=== PATIENT | male | born 1970 | race Caucasian/White ===

== ENCOUNTER 2019-12-30 16:06 | Inpatient (IN) | payer SELFPAY ==
[2019-12-30 16:18] VITALS: RESP 24; BMI 26.6
--- NOTE | 2019-12-30 16:24 | W.ED.PSYCH ---
HPI - Psych General: Chief Complaint: Psychiatric Symptoms Stated Complaint: mhe Time Seen by Provider: 12/30/19 16:18 Source: patient Mode of arrival: ambulatory Limitations: no limitations History of Present Illness: HPI Narrative: 49-year-old male with a history of methamphetamine abuse states he used IV meth yesterday and states he is feeling extremely anxious. He states he feels like he is going to harm himself or harm someone else. Patient is very anxious here and has flight of ideas. He denies any suicidality at this time. Review of Systems Const: Denies: fever(s), chills, body aches or change in appetite Eyes: Denies: blurry vision or eye discomfort ENMT: Denies: throat pain or dental pain Card: Denies: chest pain Resp: Denies: dyspnea GI: Denies: abdominal pain, nausea, vomiting or diarrhea : Denies: dysuria Musc: Denies: neck pain or back pain Skin/Breast: Denies: rash Neuro: Denies: headache(s) Psych: Reports: anxiety, mood swings and difficulty concentrating Brien/Lymph: Denies: easy bruising All/Imm: Denies: urticaria PFSH ED PFSH: Social History Smoking and tobacco status: current every day smoker Physical Exam Const: COMMON NORMALS: no acute distress, patient oriented x3 and healthy appearing GENERAL APPEARANCE: anxious and disheveled HENMT: COMMON NORMALS: normocephalic and atraumatic HEAD & SCALP: normocephalic and atraumatic Eye: COMMON NORMALS: Equal, round and reactive pupils present and EOMs intact bilaterally PUPIL: Yes Equal, round and reactive pupils present Neck/C-Spine: COMMON NORMALS: full ROM and supple Chest: COMMONS NORMALS: normal inspection of the chest and normal palpation of entire chest wall Resp: COMMON NORMALS: normal respiratory effort, No retractions, No use of accessory muscles and clear to auscultation bilaterally AUSCULTATION: clear to auscultation bilaterally Cardio: COMMON NORMALS: regular rate, regular rhythm and No murmurs present (Cardio) RATE: regular rate RHYTHM: regular rhythm GI: COMMON NORMALS: Normal to inspection, nondistended, normoactive bowel sounds present, Soft to palpation, non-tender and no masses PALPATION: Yes Soft to palpation Extremity: COMMON NORMALS: normal to inspection and full ROM Neuro: COMMON NORMALS: patient oriented x3, moves all extremities and no focal motor deficits Psych: COMMON NORMALS: mental status grossly normal, Normal thought process present and cooperative THOUGHT PROCESS: Normal thought process present Skin: COMMON NORMALS: no rashes or lesions noted and no wounds GENERAL SKIN EXAM: no rashes or lesions noted MDM - Psych MDM Narrative: Medical decision making narrative: Aniket presents here with acute psychosis along with drug abuse. Patient is voluntarily going to be admitted for psychosis. Patient is much improved after Ativan. I spoke to Dr. Hidalgo and will admit. Lab Data: Labs: Lab Results 12/30/19 12/30/19 12/30/19 Range/Units 16:30 16:30 17:18 WBC 13.7 H (4.0-10.0) 10^3/ uL RBC 4.51 (4.1-5.3) 10^6/u L Hgb 13.6 (11.7-16.6) g/dL Hct 40.9 L (42.0-52.0) % MCV 90.7 (80-94) fL MCH 30.2 (28.0-34.0) pg MCHC 33.3 (30.0-36.0) g/dL RDW 12.1 (12.1-15.1) % Plt Count 403 H (130-400) 10^3/c mm MPV 10.4 (7.4-10.4) fL Neut % (Auto) 73.6 % Lymph % (Auto) 13.4 % Prentiss % (Auto) 12.5 % Eos % (Auto) 0.1 % Baso % (Auto) 0.2 % Neut # (Auto) 10.1 H (1.8-7.7) 10^3/u L Lymph # (Auto) 1.8 (0.8-4.8) 10^3/u L Prentiss # (Auto) 1.7 H (0.2-0.9) 10^3/u L Eos # (Auto) 0.0 (0.0-0.8) 10^3/u L Baso # (Auto) 0.0 (0.0-0.1) 10^3/u L Nucleated RBC % (a uto) 0 % Nucleated RBCs # 0.0 /100WBC Sodium 131 L (136-145) mmol/L Potassium 4.3 (3.5-5.1) mmol/L Chloride 93 L (98-107) mmol/L Carbon Dioxide 24 (22-29) mmol/L Anion Gap 18.3 (5-19) BUN 21 H (6-20) mg/dL Creatinine 1.4 H (0.7-1.2) mg/dL GFR Calculation 54.1 L (90-130) mL/min Glucose 123 H (65-115) mg/dL Calculated Osmolal ity 270 L (285-295) mOsm/k g Calcium 10.9 H (8.5-10.5) mg/dL Total Bilirubin 1.0 (0.15-1.2) mg/dL AST 104 H (0-40) U/L ALT 62 H (0-41) U/L Alkaline Phosphata se 75 (40-130) IU/L Total Protein 7.6 (6.6-8.7) g/dL Albumin 4.5 (3.5-5.2) g/dL Globulin 3.1 (1.3-4.6) g/dL Salicylates < 0.3 L (3-10) mg/dL Urine Opiates Scre en Negative (Negative) ng/mL Acetaminophen < 5.0 L (10-30) ug/mL Ur Barbiturates Sc reen Negative (Negative) ng/mL Ur Phencyclidine S crn Negative (Negative) ng/mL Ur Amphetamines Sc reen Positive H (Negative) ng/mL U Benzodiazepines Scrn Negative (Negative) ng/mL Urine Cocaine Scre en Negative (Negative) ng/mL U Marijuana (THC) Screen Positive H (Negative) ng/mL Ethyl Alcohol < 10 (0-10) mg/dL Discharge Plan Discharge Admit Provider: Oliver Hidalgo Coding Level of Care Code ED Global Marketing Operations Manager for Reyesg Fwd Exam Comprehensive
[2019-12-30] MEDS: LORazepam 2 mg/mL INJ 1 mL 4 MG IM (16:53)
[2019-12-30 16:58] LABS: Basophils % 0.2 %; Eosinophils % 0.1 %; Hematocrit 40.9 % (42.0-52.0); Hemoglobin 13.6 g/dL (11.7-16.6); Lymphocytes # 1.8 10^3/uL (0.8-4.8); Lymphocytes % 13.4 %; Mean Corpuscular HGB Conc 33.3 g/dL (30.0-36.0); Mean Corpuscular Hemoglobin 30.2 pg (28.0-34.0); Mean Corpuscular Volume 90.7 fL (80-94); Mean Platelet Volume 10.4 fL (7.4-10.4); Monocytes # 1.7 10^3/uL (0.2-0.9); Monocytes % 12.5 %; Neutrophils # 10.1 10^3/uL (1.8-7.7); Neutrophils % 73.6 %; Nucleated Red Blood Cells % 0 %; Platelet Count 403 10^3/cmm (130-400); Red Blood Count 4.51 10^6/uL (4.1-5.3); Red Cell Distribution Width 12.1 % (12.1-15.1); White Blood Count 13.7 10^3/uL (4.0-10.0)
[2019-12-30 17:25] LABS: Alanine Aminotransferase 62 U/L (0-41); Albumin Level 4.5 g/dL (3.5-5.2); Alkaline Phosphatase 75 IU/L (40-130); Anion Gap 18.3 (5-19); Aspartate Amino Transferase 104 U/L (0-40); Blood Urea Nitrogen 21 mg/dL (6-20); Calcium 10.9 mg/dL (8.5-10.5); Carbon Dioxide 24 mmol/L (22-29); Chloride 93 mmol/L (98-107); Globulin 3.1 g/dL (1.3-4.6); Glomerular Filtration Rate 54.1 mL/min (90-130); Glucose 123 mg/dL (65-115); Osmolality Calculated 270 mOsm/kg (285-295); Potassium 4.3 mmol/L (3.5-5.1); Sodium 131 mmol/L (136-145); Total Protein 7.6 g/dL (6.6-8.7)
[2019-12-30 17:28] LABS: Acetaminophen < 5.0 ug/mL (10-30); Alcohol Level < 10 mg/dL (0-10); Salicylate < 0.3 mg/dL (3-10)
[2019-12-30 18:25] VITALS: BP 121/62; PULSE 85; RESP 18; O2SAT 93
[2019-12-30 19:20] VITALS: BP 109/68; PULSE 83; RESP 22; O2SAT 92
[2019-12-30 19:20] LABS: Amphetamines Screen Urine Positive (Negative); Barbiturates Screen Urine Negative (Negative); Benzodiazepines Screen Urine Negative (Negative); Cocaine Screen Urine Negative (Negative); Opiate Screen Urine Negative (Negative); PCP Screen Urine Negative (Negative); THC Screen Urine Positive (Negative)
[2019-12-30 19:42] VITALS: BP 109/68; PULSE 83; RESP 22; O2SAT 92
[2019-12-30 21:48] VITALS: BP 118/71; PULSE 89; RESP 18; TEMP 36.3; O2SAT 98
--- NOTE | 2019-12-30 22:27 | PC.NURSE ---
PT ARRIVED TO UNIT VIA [facility] ER AT 2014. PT NOTED TO BE SEDATED. PAPER SCRUBS CUT OFF BY RN IN PRESENCE OF SECURITY AND ER NURSE AND CLOTH SCRUB PANTS APPLIED. PT ASSISTED TO BED AND BLANKET APPLIED. PT RESTING WITH EVEN RESPIRATIONS.
[2019-12-31 05:48] VITALS: BP 149/82; PULSE 86; RESP 16; TEMP 36.5; O2SAT 93
--- NOTE | 2019-12-31 10:31 | P.HP_ITS ---
Providers/Chief Complaint Admitting Physician: Oliver Hidalgo MD Chief Complaint: mhe HPI NPU History of Present Illness Aniket Torres is a 49 year old male who presented to the emergency room with a UDS positive for amphetamines and marijuana and fairly anxious and endorsing he was feeling aggressive like he wanted to harm himself or someone else. He was noted to appear anxious and have flight of ideas. He was given a significant dose of IM Ativan and was fairly difficult to arouse for interview. He apologized again and again for falling asleep and not being able to answer the questions. He denied feeling unsafe and reported that he wanted to get help and get better. Psychiatric history: Unable to obtain. Substance abuse history: Unable to obtain. Family history: Unable to obtain. Developmental history: Unable to obtain. Psychosocial history: Unable to obtain Meds NPU Home Medications Medication Instructions Recorded Confirmed Last Taken Type albuterol sulfate 2 puff INHALATION Q4H PRN 12/30/19 12/30/19 Unknown History glucosamine sulfate [Glucosamine] 500 mg PO PRN 12/30/19 12/30/19 Unknown Histo ry hydroxyzine HCl 25 - 50 mg PO Q8H PRN 12/30/19 12/30/19 Unknown History meloxicam [Mobic] 7.5 - 15 mg PO DAILY PRN 12/30/19 12/30/19 Unknown History montelukast 10 mg PO DAILY 12/30/19 12/30/19 Unknown History pantoprazole 40 mg PO DAILY 12/30/19 12/30/19 Unknown History Allergies Allergy/AdvReac Type Severity Reaction Status Date / Time No Known Allergies Allergy Verified 12/30/19 16:24 PFS NPU PFSH: Social History Smoking and tobacco status: current every day smoker Mental Status Exam MSE Comments: This is a well-nourished well-developed white male with limited dress, grooming and eye contact. No abnormal movements except for significant psychomotor retardation. Uncooperative with exam in mild distress. Speech was decreased rate and volume. Mood described as tired, affect congruent. Thought process organized. Thought content: Patient denied suicidal or homicidal ideation, he did not appear to be attending to internal stimuli. Attention, concentration and memor were impaired but none were formally tested. He is barely arousable but oriented x 3. Insight and judgment are impaired. Vitals/I&O/Wt Last Vital Signs Temp 98.5 F 12/31/19 22:00 Pulse 89 12/31/19 22:15 Resp 18 12/31/19 22:15 BP 108/62 12/31/19 22:00 Pulse Ox 97 12/31/19 22:15 Weight last 48 hrs Weight 77.111 kg Data NPU : 12/30/19 16:30 12/30/19 16:30 A&P Assessment and plan (1) Methamphetamine abuse: Status: Acute (2) Impulse control disorder: Status: Acute (3) Suicidal ideation: Status: Acute Additional A&P Information This is a 49-year-old white male with a history of methamphetamine abuse who presents endorsing feeling suicidal and possibly aggressive towards others and currently unable to fully participate in the interview secondary to medications he received in the emergency room likely. 1. Continue current medication. 2. Encourage individual, group and milieu therapy. 3. Continue to 15-minute checks for safety. 4. We will work with treatment team on sober living services at the highest level of care to which he is willing to commit. Involuntary Hold Information 96 Hour Hold: 96 Hour Involuntary Admission: No Attestations NPU Medical Necessity Statement*: Inpatient hospitalization is medically necessary and the clinically appropriate intervention at this time. We will monitor medications and initiate and make changes as indicated. Likely length of stay 2 to 4 days. He will be in the hospital for over 2 midnights. Coding Level of Care Code Acute School Age Program Teacher for Ambreen Qureshi Diagnoses Methamphetamine abuse F15.10 Impulse control disorder F63.9 Suicidal ideation R45.851
--- NOTE | 2019-12-31 12:06 | PC.RESP ---
SMOKING CESSATION INFORMATION SENT TO PATIENT.
[2019-12-31 13:33] VITALS: BP 116/75; PULSE 92; RESP 20; TEMP 36.7; O2SAT 95
[2019-12-31 14:22] VITALS: PULSE 76; RESP 16; O2SAT 96
[2019-12-31] MEDS: albuterol 8 gm MDI 2 PUFF INHALATION ×2 (14:24→22:15)
[2019-12-31] MEDS: pantoprazole DR 40 mg Tablet PO (17:32)
[2019-12-31] MEDS: acetaminophen 325 mg Tablet 650 MG PO (20:58)
[2019-12-31] MEDS: OLANZapine 5 mg ODT PO (21:15)
[2019-12-31] MEDS: hyDROXYzine 25 mg Capsule 50 MG PO (21:16)
[2019-12-31 22:00] VITALS: BP 108/62; PULSE 98; RESP 16; TEMP 36.9; O2SAT 96
[2019-12-31 22:15] VITALS: PULSE 89; RESP 18; O2SAT 97
[2020-01-01 06:00] VITALS: BP 122/78; PULSE 81; RESP 16; TEMP 36.6; O2SAT 95
[2020-01-01] MEDS: pantoprazole DR 40 mg Tablet PO (06:39)
[2020-01-01] MEDS: acetaminophen 325 mg Tablet 650 MG PO (08:37)
[2020-01-01] MEDS: calcium carbonate 500 mg Chew Tablet PO (08:39)
--- NOTE | 2020-01-01 11:05 | PM.NPN ---
Subjective NPU Subjective: Interval history: Aniket continues to be lethargic and hard to arouse. He has no idea why they gave him such a large dose of the benzodiazepines when he was in the emergency room he denies being aggressive therapy and aggressive person. Denies having any issues other than being so tired is been able to be aroused occasionally eat. Mental Status Exam MSE Comments: This is a well-nourished well-developed white male with limited dress, grooming and eye contact. No abnormal movements except for significant psychomotor retardation. More cooperative with exam in mild distress. Speech was decreased rate and volume. Mood described as out of it, affect congruent. Thought process organized. Thought content: Patient denied suicidal or homicidal ideation, he did not appear to be attending to internal stimuli. Attention, concentration and memory were impaired but none were formally tested. He is more arousable and oriented x 3. Insight and judgment are impaired. Vitals/I&O/Wt Last Vital Signs Temp 97.9 F 01/01/20 06:00 Pulse 81 01/01/20 06:00 Resp 16 01/01/20 06:00 BP 122/78 01/01/20 06:00 Pulse Ox 95 01/01/20 06:00 Data NPU : 12/30/19 16:30 12/30/19 16:30 A&P Additional A&P Information (1) Methamphetamine abuse: (2) Impulse control disorder: (3) Suicidal ideation: This is a 49-year-old white male with a history of methamphetamine abuse who presents endorsing feeling suicidal and possibly aggressive towards others and currently unable to fully participate in the interview secondary to medications he received in the emergency room likely. 1. Continue current medication. 2. Encourage individual, group and milieu therapy. 3. Continue to 15-minute checks for safety. 4. We will work with treatment team on sober living services at the highest level of care to which he is willing to commit. Involuntary Hold Information 96 Hour Hold: 96 Hour Involuntary Admission: No Attestations NPU Medical Necessity Statement*: Inpatient hospitalization is medically necessary and the clinically appropriate intervention at this time. We will monitor medications and initiate and make changes as indicated. Likely length of stay 1-3 days. Coding Level of Care Code Acute Microarray Analyst for Ambreen Qureshi
[2020-01-01 14:00] VITALS: BP 122/72; PULSE 81; RESP 16; TEMP 37
[2020-01-01 20:20] VITALS: PULSE 90; RESP 17; O2SAT 98
[2020-01-01] MEDS: albuterol 8 gm MDI 2 PUFF INHALATION (20:20)
[2020-01-01 20:25] VITALS: PULSE 88; O2SAT 98
[2020-01-01 22:00] VITALS: BP 116/76; PULSE 96; RESP 20; TEMP 37.1; O2SAT 97
[2020-01-01] MEDS: hyDROXYzine 25 mg Capsule 50 MG PO (22:15)
[2020-01-02 06:00] VITALS: BP 113/83; PULSE 80; RESP 20; TEMP 37.2; O2SAT 97
[2020-01-02] MEDS: pantoprazole DR 40 mg Tablet PO ×2 (07:08→07:09)
[2020-01-02 11:18] VITALS: PULSE 90; RESP 18; O2SAT 98
[2020-01-02] MEDS: albuterol 8 gm MDI 2 PUFF INHALATION (12:39)
[2020-01-02 14:00] VITALS: BP 127/87; PULSE 97; RESP 18; TEMP 36.7; O2SAT 97
--- NOTE | 2020-01-02 14:52 | PM.NDC ---
Diagnoses at Discharge Discharge Diagnosis (1) Methamphetamine abuse: Status: Acute Problem details: Patient is motivated to return to a program associated with [facility] recovery program. (2) Impulse control disorder: Status: Acute Problem details: Cognitive behavioral therapy as indicated through his recovery program (3) Suicidal ideation: Status: Acute Problem details: The patient is now free of suicidal or homicidal ideation, plan or intent. Reason for Visit Reason for Visit: mhe Brief History: This is a 49 year old male who presented to the emergency room with a UDS positive for amphetamines and marijuana and fairly anxious and endorsing he was feeling aggressive like he wanted to harm himself or someone else. He was noted to appear anxious and have flight of ideas. He was given a significant dose of IM Ativan and was fairly difficult to arouse for interview. He apologized again and again for falling asleep and not being able to answer the questions. He denied feeling unsafe and reported that he wanted to get help and get better. Hospital Course Hospital Course The patient was here briefly and detoxed without complications. During this time he made no gestures nor did he verbalize any suicidal or homicidal ideation, plan or intent. He now verbalizes serious intent to reenter recovery. Discharge Summary This is a longstanding addict who relapsed, quickly realized this was a bad idea and came to us for assistance with detox and stabilization. He has junaid macedo to return to his original rehab program and residential care facility. He is free of any suicidal or homicidal ideation, plan or intent. Involuntary Hold Information 96 Hour Hold: 96 Hour Involuntary Admission: No Mental Status Exam MSE Comments: This is a well-nourished well-developed white male with limited dress, grooming and eye contact. No abnormal movements except for significant psychomotor retardation. Cooperative with exam and in no distress. Speech is of normal rate and volume, without dysarthria, aprosody or pressure. Mood described as good , affect congruent. Thought processes are organized and free of any looseness, blocking or pressure. Thought content: Patient denied suicidal or homicidal ideation, he did not appear to be attending to internal stimuli. Attention, concentration and memory more fluent today but none were formally tested. He is quite awake and oriented x 3. Insight and judgment are improving. Discharge Data Vitals: Last Vital Signs Temp 98.9 F 01/02/20 06:00 Pulse 90 01/02/20 11:18 Resp 18 01/02/20 11:18 BP 113/83 01/02/20 06:00 Pulse Ox 98 01/02/20 11:18 Discharge Plan Discharge Patient Disposition: Home, Self-Care Condition: Stable Prescriptions: Continued Mobic 7.5 mg Tablet 7.5 - 15 mg PO DAILY PRN (Reason: unknown) 30 Days Qty: 30 RF: 1 pantoprazole 40 mg tablet,delayed release (DR/EC) 40 mg PO DAILY 30 Days Qty: 30 RF: 1 montelukast 10 mg tablet 10 mg PO DAILY 30 Days Qty: 30 RF: 1 hydroxyzine HCl 25 mg Tablet 25 - 50 mg PO Q8H PRN (Reason: unknown) 30 Days Qty: 90 RF: 1 albuterol sulfate 90 mcg/actuation HFA aerosol inhaler 2 puff INHALATION Q4H PRN (Reason: Shortness Of Breath) 30 Days Qty: 1 RF: 1 Discontinued glucosamine sulfate [Glucosamine] 500 mg Tablet 500 mg PO PRN RF: 0 Discharge Orders: Discharge Order (Routine); Ordered 01/02/20 Ordered By: José Miguel Valdez Referrals: [facility] [Outside] - 1-3 days (your intake paperwork has been sent over to [facility]. You will need to call staff at [facility] and find out about getting initial assessment done. They do have walk-in hours from 7:30 a.m-2:30 Monday through Monday. You might be able to complete intake process by coming some time within the walk-in hours and doing it then. [facility] offers psychiatric medication management. ) [facility] [Outside] - 1-3 days (your referral for intensive outpatient substance abuse treatment has been requested. Call [facility] upon discharge so that you know when you can start your treatment there.) Discharge Diet: Usual diet Discharge Activity: Resume usual activity Discharge Attestations NPU Time Spent in Discharge Care*: greater than 30 min Specific Discharge Activities: Specific discharge activities: educating patient, discussing with pcp/other providers, discussing with housing case manager/social workers/dc planners, documenting/other paperwork and evaluating patient/reviewing data Time Spent in Smoking Cessation: Time spent discussing smoking cessation with patient: 3 to 10 minutes Status at Discharge: Cognitive status at discharge: cognitively intact, Behavioral status at discharge: cooperative, Functional status at discharge: independent ambulation Overall status at discharge: patient is back to baseline Coding Level of Care Code Acute Dramatic Critic for g Fwd Diagnoses Methamphetamine abuse F15.10 Impulse control disorder F63.9 Suicidal ideation R45.856
[2020-01-02 15:53] VITALS: BP 113/83; PULSE 90; RESP 18; TEMP 37.2; O2SAT 98
== END 2020-01-02 17:09 | disposition home or self-care (01) | DRG 897 ==
LOC: ER 16:21 → NP 19:25
PROVIDERS: Emergency Medicine; Admitting Provider Psychiatry & Neurology Psychiatry; Visit Provider Psychiatry & Neurology Psychiatry
DX: F15.10 Other stimulant abuse, uncomplicated (principal); R45.851 Suicidal ideations; F63.9 Impulse disorder, unspecified; F12.90 Cannabis use, unspecified, uncomplicated; F17.210 Nicotine dependence, cigarettes, uncomplicated
CPT/HCPCS: 12345; 36415; 80053; 80306; 80307; 85025; 94640; 96372; 99284; J2060; J3535

== ENCOUNTER 2020-01-17 00:13 | Emergency (ER) | payer SELFPAY ==
[2020-01-17] VITALS (20 sets, daily range): BP systolic 122–136; BP diastolic 84–97; PULSE 98; RESP 18; TEMP 36.6; O2SAT 95–100; BMI 26.6
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
[2020-01-17 01:12] LABS: Basophils % 0.4 %; Eosinophils # 0.2 10^3/uL (0.0-0.8); Eosinophils % 2.3 %; Hematocrit 44.3 % (42.0-52.0); Hemoglobin 14.1 g/dL (11.7-16.6); Lymphocytes # 1.3 10^3/uL (0.8-4.8); Mean Corpuscular HGB Conc 31.8 g/dL (30.0-36.0); Mean Corpuscular Hemoglobin 30.9 pg (28.0-34.0); Mean Corpuscular Volume 96.9 fL (80-94); Mean Platelet Volume 10.3 fL (7.4-10.4); Monocytes # 0.8 10^3/uL (0.2-0.9); Neutrophils # 6.6 10^3/uL (1.8-7.7); Neutrophils % 74.1 %; Nucleated Red Blood Cells % 0 %; Platelet Count 314 10^3/cmm (130-400); Red Blood Count 4.57 10^6/uL (4.1-5.3); Red Cell Distribution Width 13.1 % (12.1-15.1)
[2020-01-17] MEDS: ondansetron 2 mg/ML SDV 2 mL 4 MG IVP (01:15)
[2020-01-17] MEDS: morphine 4 mg/mL SDV 1 mL IVP (01:15)
[2020-01-17 01:31] LABS: Alanine Aminotransferase 36 U/L (0-41); Albumin Level 4.4 g/dL (3.5-5.2); Alkaline Phosphatase 67 IU/L (40-130); Anion Gap 12.7 (5-19); Aspartate Amino Transferase 34 U/L (0-40); Blood Urea Nitrogen 12 mg/dL (6-20); Calcium 9.4 mg/dL (8.5-10.5); Carbon Dioxide 30 mmol/L (22-29); Chloride 101 mmol/L (98-107); Globulin 2.3 g/dL (1.3-4.6); Glomerular Filtration Rate 90.1 mL/min (90-130); Glucose 150 mg/dL (65-115); Osmolality Calculated 289 mOsm/kg (285-295); Potassium 3.7 mmol/L (3.5-5.1); Sodium 140 mmol/L (136-145); Total Bilirubin 0.4 mg/dL (0.15-1.2); Total Protein 6.7 g/dL (6.6-8.7)
[2020-01-17] MEDS: iodixanol 320 mg/mL 100mL Btl IV (01:52)
== END 2020-01-17 03:02 | disposition home or self-care (01) ==
PROVIDERS: Emergency Provider Physician Assistant
DX: S20.212A Contusion of left front wall of thorax, initial encounter (principal); W16.622A Jumping or diving into natural body of water striking bottom causing other injury, initial encounter; F17.210 Nicotine dependence, cigarettes, uncomplicated
CPT/HCPCS: 12345; 71260; 80053; 85025; 96374; 96375; 99283; J2270; J2405; Q9967